=== PATIENT | male | born 1960 | race Caucasian/White ===

== ENCOUNTER 2021-04-04 13:35 | Emergency (ER) | payer OTHER ==
[~2021-04-04] VITALS: Ht 177.8 cm; Wt 75.7 kg
[~2021-04-04 13:35] MED LIST: AMBIEN10 MG; HARVONI PO; INVEGA6 MG/BOTTL; MOTRIN800 MG PO; PROZAC40 MG; SEROQUEL50 MG PO; SYNTHROID50 MCG; WELLBUTRIN XL300 MG; XANAX2 MG
[2021-04-04] MEDS ORDERED: LEVOXYL25 MCG (13:46)
== END 2021-04-04 17:48 | disposition home or self-care (01) ==
LOC: ER 13:35
DX: R07.89 Other chest pain (principal)